=== PATIENT | male | born 1950 | race Two or more races ===

== ENCOUNTER 2022-02-03 17:15 | Emergency (ER) | payer SELFPAY ==
[~2022-02-03] VITALS: Ht 170.2 cm; Wt 70.0 kg
[2022-02-03] MEDS ORDERED: METF-873 PO (17:35)
[2022-02-03] MEDS ORDERED: IBUPROFEN 600MG TABLET PO ONE (19:00)
[2022-02-03] MEDS ORDERED: AMOX1TAB16 MT (21:10)
[2022-02-03] MEDS ORDERED: HYDR-4001 MT (21:10)
[2022-02-03] MEDS ORDERED: IBUP-2029 MT (21:10)
[2022-02-03] MEDS ORDERED: OXYM30SP26 BOTHNSTRLS (21:10)
[2022-02-03 22:15] VITALS: BP 112/85
== END 2022-02-03 22:15 | disposition home or self-care (01) ==
LOC: ER 17:15
DX: S02.842A Fracture of lateral orbital wall, left side, initial encounter for closed fracture (principal); S09.8XXA Other specified injuries of head, initial encounter; E11.9 Type 2 diabetes mellitus without complications; Z79.84 Long term (current) use of oral hypoglycemic drugs; Y04.0XXA Assault by unarmed brawl or fight, initial encounter; Y93.89 Activity, other specified; Y92.89 Other specified places as the place of occurrence of the external cause; Y99.8 Other external cause status
CPT/HCPCS: 70486; 82962; 99284